=== PATIENT | male | born 1970 | race Hispanic/Latino ===

== ENCOUNTER 2018-06-02 17:41 | Emergency (ER) | payer MEDICAID ==
[2018-06-02 17:47] VITALS: BP 141/91; PULSE 118; RESP 20; TEMP 97.3; O2SAT 96
--- NOTE | 2018-06-02 18:36 | C.PDOC ---
Time Seen by Provider: 06/02/18 18:18 Chief Complaint (Nursing): Lower Extremity Problem/Injury Past Medical History Vital Signs: Last Vital Signs Temp 97.3 F L 06/02/18 17:44 Pulse 118 H 06/02/18 17:44 Resp 20 06/02/18 17:44 BP 141/91 H 06/02/18 17:44 Pulse Ox 96 06/02/18 17:44 - Medical History PMH: HTN - [facility] Procedures EXCIS DEBRIDE OF WOUND, INFECT, OR BURN (06/25/04) NAIL REMOVAL (10/18/12) SKIN & SUBQ BIOPSY (06/25/04) Family History: States: Unknown Family Hx - Social History Hx Tobacco Use: No Hx Alcohol Use: No Hx Substance Use: No - Immunization History Hx Tetanus Toxoid Vaccination: No Hx Influenza Vaccination: No Hx Pneumococcal Vaccination: No ED Course And Treatment O2 Sat by Pulse Oximetry: 96 Disposition - Disposition Forms: [employer] (Malagasy)
--- NOTE | 2018-06-02 18:55 | C.PDOC ---
History Of Present Illness Patient is a 48 year old male, with a PMHx of HTN, who presents to the ED c/o left knee pain that began after he missed a step while getting off the bus 3 days ago. Patient has had an old injury on his left knee, but states that this left knee pain is new. He states that he can walk on this leg but the pain has been worsening. Time Seen by Provider: 06/02/18 18:18 Chief Complaint (Nursing): Lower Extremity Problem/Injury History Per: Patient History/Exam Limitations: no limitations Onset/Duration Of Symptoms: Days (3) Current Symptoms Are (Timing): Still Present Pain Scale Rating Of: 5 Recent travel outside of the [place]: No Past Medical History Reviewed: Historical Data, Nursing Documentation, Vital Signs Vital Signs: Last Vital Signs Temp 97.3 F L 06/02/18 17:44 Pulse 118 H 06/02/18 17:44 Resp 20 06/02/18 17:44 BP 141/91 H 06/02/18 17:44 Pulse Ox 96 06/02/18 17:44 - Medical History PMH: HTN - [facility] Procedures EXCIS DEBRIDE OF WOUND, INFECT, OR BURN (06/25/04) NAIL REMOVAL (10/18/12) SKIN & SUBQ BIOPSY (06/25/04) Family History: States: Unknown Family Hx - Social History Hx Tobacco Use: No Hx Alcohol Use: No Hx Substance Use: No - Immunization History Hx Tetanus Toxoid Vaccination: No Hx Influenza Vaccination: No Hx Pneumococcal Vaccination: No Review Of Systems Constitutional: Negative for: Fever, Weakness Eyes: Negative for: Pain Cardiovascular: Negative for: Chest Pain Respiratory: Negative for: Shortness of Breath Gastrointestinal: Negative for: Nausea, Abdominal Pain Genitourinary: Negative for: Dysuria, Hematuria Musculoskeletal: Positive for: Leg Pain (left knee) Skin: Negative for: Rash, Bruising Neurological: Negative for: Weakness, Numbness Physical Exam - Physical Exam Appears: Non-toxic, No Acute Distress Skin: Normal Color, Warm, Dry, No Rash, No Ecchymosis Head: Atraumatic, Normacephalic Eye(s): bilateral: Normal Inspection Oral Mucosa: Moist Neck: Normal ROM Chest: Symmetrical Respiratory: No Accessory Muscle Use Back: No Vertebral Tenderness, No Paraspinal Tenderness Extremity: Swelling (moderate swelling to left knee), Other (left anterior knee has a healed surgical scar; left ankle normal ) Neurological/Psych: Oriented x3, Normal Motor, Normal Sensation Gait: Steady ED Course And Treatment O2 Sat by Pulse Oximetry: 96 (on RA) Pulse Ox Interpretation: Normal Medical Decision Making Medical Decision Making: Plan: Xray Lft Knee Motrin 600mg PO Patient has brace and is already walking with a cane Disposition - Disposition Referrals: Johanna Lock MD [Staff Provider] - [facility] at [facility] [Outside] Disposition: HOME/ ROUTINE Disposition Time: 20:17 Condition: GOOD Additional Instructions: Follow up with the medical doctor within 1-2 days. return if worsened. Prescriptions: Acetaminophen [Tylenol] 325 mg PO Q6 PRN #30 tab PRN Reason: Pain, Mild (1-3) traMADol [Ultram] 50 mg PO Q6 PRN #10 tab PRN Reason: Pain Instructions: Knee Sprain (DC) Forms: [employer] (Moroccan) - Clinical Impression Clinical Impression: Knee sprain - PA / RELIEF MAP MODELER / Resident Statement MD/DO has examined the patient and agrees with the treatment plan. - Scribe Statement The provider has reviewed the documentation as recorded by the Moeibgraeme Clark All medical record entries made by the Scribgraeme were at my direction and pers onally dictated by me. I have reviewed the chart and agree that the record accurately reflects my personal performance of the history, physical exam, medical decision making, and the department course for this patient. I have also personally directed, reviewed, and agree with the discharge instructions and disposition.
--- NOTE | 2018-06-02 20:39 | RAD ---
Left knee and tibia/fibula 7 views HISTORY: Prior surgery. Knee injury. Pain. COMPARISON: None available. FINDINGS: Surgical zay seen within the tibia extending from the proximal tibia to the distal tibia. No gross loosening. At the medial proximal tibia, extending from the proximal medullary cavity to the articular surface, there appears to be increased sclerosis. This may represent postsurgical changes and or cement graft material with lucency at the interface with the bone. In addition, there is a butterfly fragment seen along the medial cortex as well as on the lateral view for which superimposed acute on chronic fracture deformity cannot be excluded. 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 Sclerotic changes noted at the medial compartment of the femorotibial joint space. Lateral subluxation of the patella. Cortical thickening of the mid fibula which may represent a stress response injury. Incidentally noted is dense sclerosis seen within the tarsal bones. Productive change seen at the lateral cortex of the midfoot. Productive change at the anterior tibial tubercle. Small loose osteochondral bodies at the posterior aspect of the knee joint. Suggestion of soft tissue swelling at the level of the knee joint. Impression: 1. At the medial proximal tibia, extending from the proximal medullary cavity to the articular surface, there appears to be increased sclerosis. This may represent postsurgical changes and or cement graft material with lucency at the interface with the bone. In addition, there is a butterfly fragment seen along the medial cortex as well as on the lateral view for which superimposed acute on chronic fracture deformity cannot be excluded. These findings were discussed with physician assistant Bella at 8:34 p.m. on 06/02/2018. 2. Surgical zay seen within the tibia extending from the proximal tibia to the distal tibia. No gross loosening. 3. 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 4. Sclerotic changes noted at the medial compartment of the femorotibial joint space. 5. Lateral subluxation of the patella. 6. Cortical thickening of the mid fibula which may represent a stress response injury. 7. Incidentally noted is dense sclerosis seen within the tarsal bones. Productive change seen at the lateral cortex of the midfoot. 8. Productive change at the anterior tibial tubercle. 9. Small loose osteochondral bodies at the posterior aspect of the knee joint. 10. Suggestion of soft tissue swelling at the level of the knee joint.
== END 2018-06-02 20:29 | disposition home or self-care (01) ==
LOC: C.ER 17:41
DX: S83.92XA Sprain of unspecified site of left knee, initial encounter (principal); V78.4XXA Person boarding or alighting from bus injured in noncollision transport accident, initial encounter

== ENCOUNTER 2018-08-02 14:12 | Emergency (ER) | payer MEDICAID ==
[2018-08-02 14:18] VITALS: BMI 28.2
[2018-08-02 14:20] VITALS: BP 145/92; PULSE 97; RESP 18; TEMP 97.6; O2SAT 97
--- NOTE | 2018-08-02 14:26 | C.PDOC ---
History Of Present Illness 48 y/o male is sent to ER from long-term for evaluation and treatment of headlice. Patient states he did not realize he had it. States he is staying at a long-term and thinks he got it from there. Patient reports showering today and prior to showering, his head was already itchy. Patient denies any medical complaints at this time. Time Seen by Provider: 08/02/18 14:18 Chief Complaint (Nursing): Medical Clearance History Per: Patient History/Exam Limitations: no limitations Onset/Duration Of Symptoms: Hrs Current Symptoms Are (Timing): Still Present Past Medical History Reviewed: Historical Data, Nursing Documentation, Vital Signs Vital Signs: Last Vital Signs Temp 97.6 F 08/02/18 14:18 Pulse 97 H 08/02/18 14:18 Resp 18 08/02/18 14:18 BP 145/92 H 08/02/18 14:18 Pulse Ox 97 08/02/18 14:18 Primary Care Provider: FAMILY PROVIDER,NO - Medical History PMH: HTN - [facility] Procedures EXCIS DEBRIDE OF WOUND, INFECT, OR BURN (06/25/04) NAIL REMOVAL (10/18/12) SKIN & SUBQ BIOPSY (06/25/04) Family History: States: No Known Family Hx - Social History Hx Tobacco Use: No Hx Alcohol Use: No Hx Substance Use: No - Immunization History Hx Tetanus Toxoid Vaccination: No Hx Influenza Vaccination: No Hx Pneumococcal Vaccination: No Review Of Systems Constitutional: Negative for: Fever, Chills Skin: Negative for: Rash Psych: Negative for: Psychosis, Suicidal ideation Physical Exam - Physical Exam Appears: Non-toxic, No Acute Distress Skin: Warm, Dry Head: Normacephalic, No Tenderness, Other (scalp is erythematous appearing, no lice visualized but multiple nits visualized clinging to the hair) Eye(s): bilateral: Normal Inspection Oral Mucosa: Moist Cardiovascular: Rhythm Regular, No Murmur Respiratory: Normal Breath Sounds, No Rales, No Rhonchi, No Wheezing Extremity: Bilateral: Normal ROM Neurological/Psych: Oriented x3, Normal Speech ED Course And Treatment O2 Sat by Pulse Oximetry: 97 (RA) Pulse Ox Interpretation: Normal Progress Note: Patient treated for headlice. Disposition Counseled Patient/Family Regarding: Studies Performed, Diagnosis, Need For Followup, Rx Given - Disposition Referrals: [facility] [Outside] Disposition: HOME/ ROUTINE Disposition Time: 14:45 Condition: STABLE Additional Instructions: PATIENT HAS BEEN TREATED IN THE ER FOR HEAD LICE, AND IS CLEARED FOR DISCHARGE AND RETURN TO [facility]ARY Prescriptions: Permethrin 1% Kit [Nix Complete Lice Elimination Kit 1%] 59 ml TP ONCE #1 bottle Instructions: Head Lice (DC) Forms: [employer] (Rwandan) Print Language: PERSIAN - Clinical Impression Clinical Impression: Head lice infestation - Scribe Statement The provider has reviewed the documentation as recorded by the Dima Mcknight Provider Attestation: All medical record entries made by the Dima were at my direction and personally dictated by me. I have reviewed the chart and agree that the record accurately reflects my personal performance of the history, physical exam, medical decision making, and the department course for this patient. I have also personally directed, reviewed, and agree with the discharge instructions and disposition.
[2018-08-02] MEDS ORDERED: Permethrin 1% Kit 59 ML BOTTLE TOP ONE (14:29)
== END 2018-08-02 15:28 | disposition home or self-care (01) ==
LOC: C.ER 14:12
DX: B85.0 Pediculosis due to Pediculus humanus capitis (principal); I10 Essential (primary) hypertension

== ENCOUNTER 2018-08-09 21:35 | Emergency (ER) | payer MEDICAID | END 2018-08-09 23:38 | disposition home or self-care (01) | LOC: C.ER 21:35 ==